=== PATIENT | female | born 1985 | race Caucasian/White ===

== ENCOUNTER 2020-05-06 16:50 | Emergency (ER) | payer OTHER ==
[2020-05-06] MEDS ORDERED: HYDROCODON-ACE1 EAC2 PO ×2 (18:30→19:18)
== END 2020-05-06 19:32 | disposition home or self-care (01) ==
LOC: FER 16:50
DX: S13.4XXA Sprain of ligaments of cervical spine, initial encounter (principal); S23.3XXA Sprain of ligaments of thoracic spine, initial encounter; R51.9 Headache, unspecified; F17.200 Nicotine dependence, unspecified, uncomplicated; V43.92XA Unspecified car occupant injured in collision with other type car in traffic accident, initial encounter; Y92.410 Unspecified street and highway as the place of occurrence of the external cause; Y99.0 Civilian activity done for income or pay
CPT/HCPCS: 70450; 71045; 72125; 72128; J1885